=== PATIENT | male | born 1985 | race Caucasian/White ===

== ENCOUNTER 2021-12-23 08:08 | Outpatient (CLI) | payer OTHER, SELFPAY ==
[2021-12-24 11:07] LABS: Kit Draw Collected
== END 2021-12-23 08:09 | disposition home or self-care (01) ==
LOC: ANHGOSHLAB 08:13
PROVIDERS: PCP Family Medicine; Visit Provider Family Medicine
DX: R53.83 Other fatigue (principal)
CPT/HCPCS: 36415

== ENCOUNTER 2022-01-06 15:16 | Emergency (ER) | payer OTHER, SELFPAY ==
[2022-01-06 15:26] VITALS: BP 158/90; PULSE 70; RESP 18; TEMP 36.2; O2SAT 99
[2022-01-06 15:58] LABS: Basophils Percent Auto 0.4 % (0.2-1.2); Eosinophils Percent Auto 0.7 % (0-4.4); Hematocrit 47.7 % (42.0-52.0); Hemoglobin 16.5 g/dL (14.0-18.0); Immature Granulocyte Absolute 0.01 K/mm3 (0.00-0.031); Immature Granulocyte Percent A 0.2 % (0-0.5); Lymphocytes Absolute Auto 1.43 K/mm3 (0.9-3.2); Lymphocytes Percent Auto 26.6 % (18.3-44.2); Mean Corpuscular HGB Conc 34.6 g/dl (32-36); Mean Corpuscular Hemoglobin 29.7 pg (26-34); Mean Corpuscular Volume 85.9 fl (80-100); Mean Platelet Volume 9.2 fl (7.4-10.4); Monocytes Absolute Auto 0.5 K/mm3 (0.1-0.6); Monocytes Percent Auto 9.9 % (2.6-8.5); Neutrophils Absolute Auto 3.4 K/mm3 (1.3-6.7); Neutrophils Percent Auto 62.2 % (45.5-73.1); Platelet Count Result 196 k/mm3 (150-375); Red Blood Count 5.55 M/mm3 (4.6-6.20); Red Cell Distribution Width 12.4 % (11.5-14.5); White Blood Count 5.4 K/mm3 (4.5-10.0)
[2022-01-06 16:09] LABS: Alanine Aminotransferase 25 U/L (6-50); Albumin Level 4.8 g/dL (3.5-5.1); Alkaline Phosphatase 63 U/L (38-126); Anion Gap 8 mmol/L (8-16); Aspartate Amino Transferase 24 U/L (17-59); Bilirubin,Total 0.9 mg/dL (0.2-1.3); Blood Urea Nitrogen 13 mg/dL (9-20); Calcium 9.2 mg/dL (8.4-10.2); Carbon Dioxide 30 mmol/L (22-30); Chloride 100 mmol/L (98-107); Estimated CRCL calculation 94 ml/min; Estimated Glomerular Filt Rate > 60; Glucose 96 mg/dL (65-110); Potassium 3.9 mmol/L (3.4-5.0); Sodium 138 mmol/L (137-145)
[2022-01-06 16:34] LABS: Influenza A QL RT-PCR Negative (Negative); Influenza B QL RT-PCR Negative (Negative); RSV RNA, RT-PCR Negative (Negative); SARS-CoV-2 RNA PCR Negative
--- NOTE | 2022-01-06 16:35 | PC.NURSE ---
EDP at bedside to assess pt.
[2022-01-06 16:50] LABS: Monoscreen Negative (Negative); Negative Monotest Control Negative (Negative); Positive Monotest Control Positive (Positive)
[2022-01-06] MEDS: LIDOCAINE HCL 2% VISC SOLN 15 ML UDC PO (17:00)
[2022-01-06] MEDS: methylPREDNISolone SOD SUCC 125 MG VIAL IV PUSH (17:01)
--- NOTE | 2022-01-06 17:02 | ED.URI ---
HPI - URI/Sore Throat General Chief Complaint: Upper Respiratory Infection Stated Complaint: ST Time Seen by Provider: 01/06/22 16:17 Source: patient and family Mode of arrival: ambulatory Limitations: no limitations History of Present Illness HPI Narrative: Patient is a 36-year-old male who presents to the ED with multiple complaints. Patient reports having a sore throat for the past 1 week. He notes his children have been sick. He states he has sores in the back of his throat that causes pain with swallowing. He states the pain is his biggest complaint and has caused him issues with sleeping. He denies difficulty swallowing or difficulty breathing, just has pain with this. He also reports having a cough, rhinorrhea, congestion, bilateral ear pain, subjective fevers, nausea, myalgias. He has been on Augmentin for the past 3 days for possible Strep. Related Data Home Medications Medication Instructions Recorded Confirmed melatonin 5 mg capsule mg PO 12/22/21 12/22/21 Allergies Allergy/AdvReac Type Severity Reaction Status Date / Time No Known Allergies Allergy Unknown Verified 12/22/21 09:34 Review of Systems Review of Systems: CONSTITUTIONAL: Reports subjective fevers. ENT: Reports rhinorrhea, congestion, sore throat, and otalgia. Denies difficulty swallowing. CARDIOVASCULAR: Denies chest pain. RESPIRATORY: Reports cough. Denies dyspnea. GASTROINTESTINAL: Reports nausea. Denies abdominal pain, vomiting, or diarrhea. MUSCULOSKELETAL: Reports myalgias. NEUROLOGIC: Reports RAHMAN. Denies numbness, or weakness. All systems reviewed & are unremarkable except as noted in HPI and below PMFSH Past Medical History Medical History No pertinent past medical history Surgical History Surgical History (Updated 01/06/22 @ 17:11 by Ifeoma Lerma PA-C) No pertinent past surgical history Family History Family History Grandparent Diabetes mellitus Hypertension Family history of cardiovascular disease Cerebrovascular accident Family history of malignant neoplasm Father Depression Family history of elevated blood lipids Mother Family history of elevated blood lipids Social History Social History Smoking status: Never smoker Alcohol intake: current Exam Narrative: GENERAL: Well appearing, well-nourished, non-toxic, in no acute distress. HEAD: Normocephalic, atraumatic. EYES: PERRLA, EOMI, conjunctiva clear. EARS: TMs and EACs mildly erythematous bilaterally, no bulging of TMs. No fluid behind TMs. No TM perforation. THROAT: Posterior pharynx erythema, minimal tonsillar hypertrophy. No asymmetric hypertrophy. No tonsillar exudate. Uvula midline. There is a small circular aphthous ulcer along patient's left palatopharyngeal arch. NECK: Supple. Mild bilateral anterior cervical lymphadenopathy, no masses. RESPIRATORY: Airway patent, respirations nonlabored. Clear to auscultation bilaterally, no rales, rhonchi, wheezing. CARDIOVASCULAR: Regular rate and rhythm without murmurs, rubs, or gallops. Peripheral pulses 2+ and equal bilaterally. ABDOMINAL: Soft, nontender, nondistended, no hepatosplenomegaly. Normoactive BS. MUSCULOSKELETAL: Moves all extremities. Strength/ROM intact without gross deformities. SKIN: Warm, dry, normal color. No rashes. NEURO: A&O X3. Speech clear. Cranial nerves II-XII grossly intact. Steady gait. No ataxic movements. PSYCHIATRIC: Appropriate mood and affect. Normal interaction. Course Vital Signs Vital signs: Vital Signs Temperature 97.2 F L 01/06/22 15:26 Pulse Rate 70 01/06/22 15:26 Respiratory Rate 18 01/06/22 15:26 Blood Pressure 158/90 H 01/06/22 15:26 Pulse Oximetry 99 01/06/22 15:26 Oxygen Delivery Room Air 01/06/22 15:26 Temperature 97.2 F L 01/06/22 15:26 Pulse Rate
[2022-01-06] MEDS: SODIUM CHLORIDE 0.9% IV 1,000 ML 999 ML IV CONT (17:03)
== END 2022-01-06 19:16 | disposition home or self-care (01) ==
PROVIDERS: Emergency Provider Emergency Medicine; PCP Family Medicine
DX: K12.0 Recurrent oral aphthae (principal); J06.9 Acute upper respiratory infection, unspecified; Z20.822 Contact with and (suspected) exposure to COVID-19
CPT/HCPCS: 36415; 80053; 85025; 86308; 87081; 87637; 87880; 96361; 96365; 96375; 99284; J0131; J2930; J7030

== ENCOUNTER 2022-04-18 16:19 | Emergency (ER) | payer OTHER, SELFPAY ==
[2022-04-18 16:34] VITALS: BP 116/53; PULSE 74; RESP 16; TEMP 35.8; O2SAT 100
--- NOTE | 2022-04-18 16:36 | ED.URI ---
HPI - URI/Sore Throat General Chief Complaint: Upper Respiratory Infection Stated Complaint: SORE THROAT/VOMITING Time Seen by Provider: 04/18/22 16:30 Source: patient, RN notes reviewed and old records reviewed Mode of arrival: ambulatory Limitations: no limitations History of Present Illness HPI Narrative: 36-year-old male who presents to [facility] with complaints of sore throat which began about 1hour ago. He states that he had emesis last night which is very unusual for him. Patient states that son tested positive strep today and patient reports that he has been fatigued and has had some nasal drainage and cough also for the past few days. Patient states that he did have low grade temp of 99.4F a few days ago. Patient has been COVID and flu vaccinated. MD elicited complaint: sore throat, rhinorrhea, nasal congestion and other (cough) Onset (ago): hour(s) (today) Pain scale (0-10): 2 Able to tolerate fluids by mouth: Yes Treatments prior to arrival: none Related Data Allergies Allergy/AdvReac Type Severity Reaction Status Date / Time No Known Allergies Allergy Unknown Verified 04/18/22 16:28 Review of Systems Review of Systems: CONSTITUTIONAL: Denies malaise, chills, sweats, or present fever.reports fatigue EYES: Denies visual changes, redness, or discharge. ENT: Reports rhinorrhea, congestion, no sinus pain, no otalgia positive for sore throat. CARDIOVASCULAR: Denies chest pain, palpitations, or edema. RESPIRATORY: Reports cough.? Denies dyspnea. GASTROINTESTINAL: Denies abdominal pain,denies present nausea, vomiting one episode last evening,no diarrhea SKIN: Denies rash or itching. MUSCULOSKELETAL: Denies myalgia. NEUROLOGIC: positive for headache. All systems reviewed & are unremarkable except as noted in HPI and below PMFSH Past Medical History Medical History (Updated 04/19/22 @ 00:00 by Heriberto Dajorden) No pertinent past medical history Surgical History Surgical History (Updated 04/18/22 @ 16:41 by Arabella Vazquez NP) History of repair of anterior cruciate ligament of left knee No pertinent past surgical history Family History Family History Grandparent Diabetes mellitus Hypertension Family history of cardiovascular disease Cerebrovascular accident Family history of malignant neoplasm Father Depression Family history of elevated blood lipids Mother Family history of elevated blood lipids Social History Social History (Updated 04/20/22 @ 08:21 by Arabella Vazquez NP) Smoking status: Never smoker Alcohol intake: current Substance use type: does not use Living arrangements: with family Gender identity (if verbalized by the patient): Male Comments At time of signature, agree with nursing past medical, surgical, social and family history. There is no relevant family history pertinent to the presenting complaint Exam Narrative: GENERAL: Well-appearing, well-nourished, and in no acute distress. HEAD: Normocephalic EYES: PERRLA, conjunctivae clear ENT: Nares clear, turbinates edematous and erythematous, clear discharge. Mucous membranes moist. TM pearly whatley with dull light reflex bilaterally; no tragal tenderness. Oropharynx erythematous without lesions reports pain. Tonsils not enlarged and without exudate, no drooling, no hoarseness, no trismus, uvula midline.post nasal drainage NECK: Supple. No lymphadenopathy CHEST: Clear to auscultation, breath sounds equal. No wheezing, rhonchi, rales, or stridor. No respiratory distress, speaks in full sentences. dry cough, SAO2 100% on room air HEART: Regular rate and rhythm. No murmur heard. SKIN: Warm, dry, no rash. NEURO: Alert and oriented x3. PSYCH: Normal mood and affect Course Course Emergency Course: Patient is aware of diagnosis, understands and agrees to treatment plan.? Anticipatory guidance given.? Patient agrees to follow-u
== END 2022-04-18 17:01 | disposition home or self-care (01) ==
PROVIDERS: Emergency Provider Registered Nurse; PCP Family Medicine
DX: J06.9 Acute upper respiratory infection, unspecified (principal); J02.9 Acute pharyngitis, unspecified; Z20.818 Contact with and (suspected) exposure to other bacterial communicable diseases
CPT/HCPCS: 87081; 87880; 99213; G0463

== ENCOUNTER 2023-05-01 08:30 | Emergency (ER) | payer OTHER, SELFPAY ==
--- NOTE | ~2023-05-01 | XR_ITS ---
XR ankle LT min 3V DATE: 05/01/2023 09:07 INDICATION: Left ankle pain and swelling for 2 days. No injury. TECHNIQUE: 4 views COMPARISON: None FINDINGS: Slight plantar calcaneal enthesopathy. No fracture or dislocation of the ankle or disruption of the ankle mortise. No periosteal reaction or bone destruction. IMPRESSION: No significant abnormality of the left ankle Slight plantar calcaneal enthesopathy Reviewed, dictated and finalized at location A.
[2023-05-01 08:43] VITALS: BP 136/78; PULSE 79; RESP 16; TEMP 36.8; O2SAT 100
--- NOTE | 2023-05-01 08:49 | ED.LOWEXIN ---
HPI - Extremity Injury (Lower) General Chief Complaint: Extremity Injury, Lower Stated Complaint: swollen ankle, left Time Seen by Provider: 05/01/23 08:49 Source: patient Mode of arrival: ambulatory Limitations: no limitations History of Present Illness HPI Narrative: 37 y/o male presented for c/o left ankle pain worsening x2 days. Denies known injury, however he states he has been doing weighted pull-ups, in which he drops to the ground wearing the weighted belt. Endorses he has had some intermittent pain to the ankle for a few weeks after doing this exercise but states it was not significant. States last night he could not tolerate any weight bearing. He states the Pain radiates from the Achilles up towards the calf, and endorses pain worsens with walking or when the ankle dangles while elevated. Hx multiple sprains to the left ankle. Taking ibuprofen without relief. Denies swelling, bruising, redness, warmth, or deformity. Using crutches from home. Related Data Allergies Allergy/AdvReac Type Severity Reaction Status Date / Time No Known Allergies Allergy Unknown Verified 05/01/23 08:39 Review of Systems Review of Systems: CONSTITUTIONAL: Denies body aches, fever, chills CARDIOVASCULAR: Denies chest pain, palpitations, or edema. RESPIRATORY: Denies cough or dyspnea. SKIN: Denies rash, itching, or wounds. MUSCULOSKELETAL: Reports left ankle pain. Denies back pain, or myalgia. NEUROLOGIC: Denies numbness, tingling, or weakness. All systems reviewed & are unremarkable except as noted in HPI and below PMFSH Past Medical History Medical History No pertinent past medical history Surgical History Surgical History History of repair of anterior cruciate ligament of left knee No pertinent past surgical history Family History Family History Grandparent Diabetes mellitus Hypertension Family history of cardiovascular disease Cerebrovascular accident Family history of malignant neoplasm Father Depression Family history of elevated blood lipids Mother Family history of elevated blood lipids Social History Social History Smoking status: Never smoker Alcohol intake: current Substance use type: does not use Living arrangements: with family Gender identity (if verbalized by the patient): Male Comments At time of signature, I have reviewed and agree with nursing past medical, surgical, social and family history unless otherwise noted. Please see nursing chart for further information. There is no relevant family history pertinent to the presenting complaint Exam Narrative: GENERAL: Well-appearing CHEST: Speaks in full sentences. No respiratory distress. HEART: Regular rate and rhythm. Normal and equal peripheral pulses. EXTREMITIES: Slightly limited range of motion with flexion/extension/rotation of left ankle due to subjective pain with movement. Pain illicited with inversion of foot. Mild tenderness with palpation to achilles, states it radiates to anterior ankle. Mild erythema to Achilles. Left foot has normal strength and sensation, No swelling, erythema, warmth, or ecchymosis to ankle. No calf swelling/tenderness. No open wounds, or obvious deformity; alignment normal, pulse palpable and equal bilaterally, skin warm, dry, pink SKIN: Warm, dry, no rash. Capillary refill less than 3 seconds. NEURO: Alert and oriented x3. PSYCH: Normal mood and affect Course Course Emergency Course: Patient is aware of diagnosis, understands and agrees to treatment plan. Anticipatory guidance given. Patient agrees to follow-up as directed and is aware of reasons to seek care at the emergency department. Portions of this record may have been created with voice recognition software Level of C
== END 2023-05-01 09:40 | disposition home or self-care (01) ==
PROVIDERS: Emergency Provider Nurse Practitioner Family; PCP Family Medicine Sports Medicine
DX: M25.572 Pain in left ankle and joints of left foot (principal)
CPT/HCPCS: 73610; 99213; G0463

== ENCOUNTER 2024-04-15 14:07 | Emergency (ER) | payer OTHER, SELFPAY ==
[2024-04-15 14:20] VITALS: BP 138/80; PULSE 89; RESP 16; TEMP 36.1; O2SAT 99
[2024-04-15 14:54] LABS: EDCOVIDSCREEN Negative (Negative)
[2024-04-15 14:55] LABS: EDINFLUASCREEN Positive (Negative); EDINFLUBSCREEN Negative (Negative)
--- NOTE | 2024-04-15 15:13 | ED.URI ---
HPI - URI/Sore Throat General Chief Complaint: Upper Respiratory Infection Stated Complaint: FEVER/SINUS Time Seen by Provider: 04/15/24 15:00 Source: patient, RN notes reviewed and old records reviewed Mode of arrival: ambulatory Limitations: no limitations History of Present Illness HPI Narrative: 38 year old male presents to [facility] with complaints of having influenza in household 2 weeks ago and though he had it along with everyone else and was feeling bbetter till Tuesday. He states that he started with fever of 102 on Tuesday, nonproductive cough, headache, body aches with fever of 103F this morning. Patient reports that he has been taking Ibuprofen, Mucinex, and Sudafed for his symptoms. MD elicited complaint: fever, cough, rhinorrhea, nasal congestion and other (body aches and headache) Onset (ago): day(s) (2 days ago) Severity: moderate Able to tolerate fluids by mouth: Yes Treatments prior to arrival: ibuprofen and other (Mucinex and Sudafed) Related Data Home Medications ?Medication ?Instructions ?Recorded ?Confirmed ?Last Taken ?Type doxepin 3 mg tablet 3 mg PO HS 04/15/24 04/15/24 Unknown History Allergies Allergy/AdvReac Type Severity Reaction Status Date / Time No Known Allergies Allergy Unknown Verified 04/15/24 14:14 Review of Systems Review of Systems: CONSTITUTIONAL: Reports malaise, chills, sweats, or fever. EYES: Denies visual changes, redness, or discharge. ENT: Reports rhinorrhea, congestion,no sinus pain, no otalgia and no sore throat. CARDIOVASCULAR: Denies chest pain, palpitations, or edema. RESPIRATORY: Reports cough.? Denies dyspnea. GASTROINTESTINAL: Denies abdominal pain, nausea, vomiting, diarrhea SKIN: Denies rash or itching. MUSCULOSKELETAL: Reports myalgia. NEUROLOGIC: Reports headache. All systems reviewed & are unremarkable except as noted in HPI and below PMFSH Past Medical History Medical History No pertinent past medical history Surgical History Surgical History History of repair of anterior cruciate ligament of left knee No pertinent past surgical history Family History Family History Grandparent Diabetes mellitus Hypertension Family history of cardiovascular disease Cerebrovascular accident Family history of malignant neoplasm Father Depression Family history of elevated blood lipids Mother Family history of elevated blood lipids Social History Social History Smoking status: Never smoker Alcohol intake: current Substance use type: does not use Living arrangements: with family Gender identity (if verbalized by the patient): Male Comments At time of signature, agree with nursing past medical, surgical, social and family history. There is no relevant family history pertinent to the presenting complaint Exam Narrative: GENERAL: Ill-appearing, well-nourished, and in no acute distress. HEAD: Normocephalic EYES: PERRLA, conjunctivae clear ENT: Nares clear, turbinates edematous and erythematous, clear discharge. Mucous membranes moist. TM pearly whatley with dull light reflex bilaterally; no tragal tenderness. Oropharynx erythematous without lesions. Tonsils not enlarged and without exudate, no drooling, no hoarseness, no trismus, uvula midline.post nasal drainage NECK: Supple. No lymphadenopathy CHEST: Clear to auscultation, breath sounds equal. No wheezing, rhonchi, rales, or stridor. No respiratory distress, speaks in full sentences.non productive cough, SAO2 99% on room air HEART: Regular rate and rhythm. No murmur heard. SKIN: Warm, dry, no rash. NEURO: Alert and oriented x3. PSYCH: Normal mood and affect Course Course Emergency Course: Patient is aware of diagnosis, understands and agrees to treatment plan.? Anticipatory guidance given.? Patient agrees to follow-up as directed and is aware of reasons to seek care at the emergency department. Portions of this record may have been created with voice recognition software Level of Care: Express Care Visit Vital Signs Vital signs: Vital Signs Temperature 36.1 C L 04/15/24 14:20 Pulse Rate 89 04/15/24 14:20 Respiratory Rate 16 04/15/24 14:20 Blood Pressure 138/80 04/15/24 14:20 Pulse Oximetry 99 04/15/24 14:20 Temperature 36.1 C L 04/15/24 14:20 Pulse Rate 89 04/15/24 14:20 Respiratory Rate 16 04/15/24 14:20 Blood Pressure 138/80 04/15/24 14:20 Pulse Oximetry 99 04/15/24 14:20 Reviewed MDM - URI/Sore Throat MDM Narrative Medical decision making narrative: Differential diagnosis considered: Maddox virus, strep pharyngitis, allergic rhinitis, upper respiratory tract infection, sinusitis, rhinosinusitis, nasopharyngitis. viral pharyngitis, otitis media, otitis externa, pneumonia, bronchitis, viral cough syndrome, viral syndrome, and influenza.? Exam findings show no acute concerns or changes; patient is non-toxic appearing and is in no distress.? Patient is appropriate for outpatient treatment and follow-up. Differential Diagnosis Differential diagnosis: Likely upper respiratory infection, viral infection, influenza and other (COVID) Medical Records Attestation: I reviewed the patient's medical records. Lab Data Attestation: I reviewed the patient's lab results. Lab results narrative: Influenza A positive, Influenza B negative, COVID antigen negative Labs: Lab Results 04/15/24 Range/Units 14:53 POC Influenza A Ag Positive (Negative) POC Influenza B Ag Negative (Negative) POC SARS CoV-2 Ag Negative (Negative) reviewed Critical Care Time Critical Care Time Critical Care Time: No Discharge Plan Discharge Clinical Impression: Influenza A Patient Disposition: Home, Self-Care Condition: Stable Instructions: Influenza (ED) Additional Instructions: Increase fluids especially juices and water [id number] cough and cold medicine of your choice for your symptoms Zyrtec Claritin or Carri daily Tylenol ibuprofen for any fever pain recommend alternating see can have something every 4 hours as needed monitor temperatures every 4 hours heat to the face 20-30 minutes 4-6 times a day for pain Salt water gargles, throat lozenges or throat sprays as desired If your symptoms persist, change or worsen significantly before you can contact your personal physician then please, without delay, go to the emergency department for further evaluation. Follow-up with PCP in 7-10 days or sooner if needed Follow up with PCP soon in regards to your blood pressure which is elevated above threshold for referral. Blood pressure above 120/80 may indicate pre-hypertension. 138/80 Patient Language: Tajik Prescriptions: No Action ibuprofen 800 mg tablet 800 mg PO TID PRN (Reason: pain) Qty: 15 0RF methylprednisolone [Medrol (Nathan)] 4 mg tablets,dose pack See Rx Instructions .ROUTE .COMPLEX Qty: 21 0RF Rx Instructions: orally per package directions doxepin 3 mg tablet 3 mg PO HS Follow-up/Referrals: UNKNOWN,DOCTOR [Primary Care Provider] - Stand Alone Forms: Work/School Release IP Time of Disposition: 15:18 Quality Ninfa Coma Scale Eyes: Open Verbal: Oriented and Alert Motor: Follows Commands Ninfa Coma Total Score: 15
== END 2024-04-15 15:23 | disposition home or self-care (01) ==
PROVIDERS: Emergency Provider Registered Nurse
DX: J10.1 Influenza due to other identified influenza virus with other respiratory manifestations (principal); Z20.822 Contact with and (suspected) exposure to COVID-19
CPT/HCPCS: 87426; 87804; 99212; G0463